=== PATIENT | female | born 2000 | race African-American/Black ===

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

== ENCOUNTER 2020-05-14 15:11 | Emergency (ER) | payer OTHER ==
--- OUTSIDE RECORDS SUMMARY | 2020-05-14 15:14 | XMS REPORT | Summary of Care ---
:2000 Author Organization [facility] Address [address] [place] [address] Care Team Providers Name Role Phone Kirby Palacio Primary Care Provider Encounter Details Date Type Department Care Team Description 05/14/2020 Orders Only [facility] Doctor Unassigned, No [address] [facility] [place] [facility] [place] [address] [address] [place] [address] Allergies No Known Allergiesdocumented as of this encounter (statuses as of 05/14/2020) Medications Medication Sig Dispensed Refills Start Date End Date Status LUPRON DEPOT-PED 15 15 mg intramuscular 1 4 10/23/2009 Active MG IM KIT every 4 weeks sulfamethoxazole-tr Take 1 tablet by 20 tablet 0 05/04/2019 Active imethoprim 800-160 mouth every 12 mg per (twelve) hours. tabletIndications: Abscess, Pilonidal cyst with abscess, Urinary tract infection without hematuria, site unspecified traMADol (ULTRAM) Take 1 tablet by 9 tablet 0 05/04/2019 Active 50 mg mouth every 8 (eight) tabletIndications: hours as needed for Abscess, Pilonidal Pain (scale 4-6). cyst with abscess, Urinary tract infection without hematuria, site unspecified documented as of this encounter (statuses as of 05/14/2020) Active Problems Problem Noted Date Precocious sexual development and puberty, not elsewhe re classified 09/24/2008 documented as of this encounter (statuses as of 05/14/2020) Social History Tobacco Use Types Packs/Day Years Used Date Never Assessed Sex Assigned at Date Recorded Not on file documented as of this encounter Last Filed Vital Signs Not on filedocumented in this encounter Plan of Treatment Health Maintenance Due Date Last Done Comments VARICELLA VACCINES (1 of 2 - 2-dose 01/03/2001 childhood series) PNEUMOCOCCAL 0-64 YEARS COMBINED 01/03/2006 SERIES (1 of 3 - PCV13) MENINGOCOCCAL B VACCINES (1 of 2 - 01/03/2010 Risk Bexsero 2-dose series) HPV VACCINES (1 - 2-dose series) 01/03/2011 Depression Screening 2012 WELL CARE VISIT: 12-21 YEARS 2012 (yearly) CHLAMYDIA SCREENING 2016 DTaP,Tdap,and Td Vaccines (1 - 01/03/2019 Tdap) INFLUENZA VACCINE (#1) 2020 MENINGOCOCCAL VACCINE Aged Out No longer eligible based on patient's age to complete this topic documented as of this encounter Procedures Procedure Name Priority Date/Time Associated Diagnosis Comme nts CONSENT/REFUSAL FOR Routine 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
--- OUTSIDE RECORDS SUMMARY | 2020-05-14 15:14 | XMS REPORT | Summary of Care ---
:2000 Author Organization [facility] Address [address] [place] [address] Care Team Providers Name Role Phone Kirby Palacio Primary Care Provider Reason for Referral Radiology Services (STAT) Status Reason Specialty Diagnoses / Referred By Referred To Procedures Contact Contact New Request Diagnostic Diagnoses Chest pain, unspecified type 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, Radiology Procedures Chest 2 Views [employer] [address] [place] [address] Reason for Visit Reason Comments Chest Pain Auth/Cert Status Reason Specialty Diagnoses / Referred By Referred To Procedures Contact Contact Emergency Medicine [facility] Em ergency Dept [address] [place] [address] Fax: Encounter Details Date Type Department Care Team Description 03/03/2020 Emergency ADC-Emergency 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 , 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 Atypical chest pain (Primary Dx); Department [address] [facility] Chest pain, unspecified type; [address] [place], [place] [address] [place] [address] [id number] [place] [address] Allergies No Known Allergiesdocumented as of this encounter (statuses as of 03/03/2020) Medications Medication Sig Dispensed Refills Start Date [...] as of this encounter (statuses as of 03/03/2020) Active Problems Problem Noted Date Precocious sexual development and puberty, not elsewhe re classified 09/24/2008 documented as of this encounter (statuses as of 03/03/2020) Social History Tobacco Use Types Packs/Day Years Used Date Never Assessed Sex Assigned at Date Recorded Not on file COVID-19 Exposure Response Date Recorded In the last month, have you been in contact with No / Unsure 03/03/2020 11:45 AM CDT someone who was confirmed or suspected to have Coronavirus / COVID-19? documented as of this encounter Last Filed Vital Signs Vital Sign Reading Time Taken Comments Blood Pressure 135/83 03/03/2020 2:30 PM CDT Pulse 57 03/03/2020 2:30 PM CDT Temperature 36.6 C (97.8 F) 03/03/2020 11:47 AM CDT Respiratory Rate 18 03/03/2020 2:30 PM CDT Oxygen Saturation 100% 03/03/2020 2:30 PM CDT Inhaled Oxygen Concentration - - Weight 117.9 kg (260 lb) 03/03/2020 11:47 AM CDT Height 167.6 cm (5' 6") 03/03/2020 11:47 AM CDT Body Mass Index 41.97 03/03/2020 11:47 AM CDT documented in this encounter Discharge Instructions Joie Flores FNP - 03/03/2020Please return to the ER if you have any increasing chest pain, fever, chills, nausea, vomiting, worsening shortness of breath, or any other symptom you feel is abnormal. Please follow up with your primary care doctor as soon as possible. Thank you. AttachmentsThe following attachments cannot be sent through Care Everywhere. Chest Pain, Uncertain Cause (Montenegrin)documented in this encounter ED Notes Cony Horner RN - 03/03/2020 11:46 AM CDTPatient complaining of chest pain that started while she was at work yesterday. States she took an Aleve and it went away. When she woke up this morning she experience the same pain but did not take any medication. documented in this encounter Miscellaneous Notes ED Nurse Note - Hector Sun RN - 03/03/2020 2:50 PM CDTDischarge teaching given. Patient verbalized understanding. Vital stable. No acute distress noted. Patient ambulatory documented in this encounter Plan of Treatment Name Type Priority Associated Diagnoses Order S chedule Urine Culture LAB CAMILA Bacteria in urine CAMILA for 1 Occurrences starting 03/03/2020 unti l 03/03/2020 Health Maintenance Due Date Last Done Comments VARICELLA VACCINES (1 of 2 - 01/03/2001 2-dose childhood series) MENINGOCOCCAL B VACCINES (1 of 2 - 01/03/2010 Risk Bexsero 2-dose series) HPV VACCINES (1 - 2-dose series) 01/03/2011 WELL CARE VISIT: 12-21 YEARS 2012 (yearly) CHLAMYDIA SCREENING 2016 DTaP,Tdap,and Td Vaccines (1 - 01/03/2019 Tdap) INFLUENZA VACCINE (#1) 2020 Depression Screening 05/07/2020 05/07/2019 MENINGOCOCCAL VACCINE Aged Out No longer eligible based on patient's age to complete this topic PNEUMOCOCCAL 0-64 YEARS COMBINED Aged Out No longer eligible based on SERIES patient's age to complete this topic documented as of this encounter Procedures Procedure Name Priority Date/Time Associated Comments Diagnosis XR CHEST 2 VW STAT 03/03/2020 1:59 Chest pain, Results fo r this PM CDT unspecified type procedure a re in the results section. URINALYSIS STAT 03/03/2020 12:35 Chest pain, Results for this PM CDT unspecified type procedure a re in the results section. CBC WITH DIFF STAT 03/03/2020 12:35 Chest pain, Results fo r this PM CDT unspecified type procedure a re in the results section. BASIC METABOLIC STAT 03/03/2020 12:35 Chest pain, Results for this PANEL (NA, K, CL, PM CDT unspecified type proced ure are in CO2, GLUCOSE, BUN, the resul ts CREATININE, CA) section. TROPONIN I STAT Add-On 03/03/2020 12:35 Chest pain, Results for this PM CDT unspecified type procedure a re in the results section. POCT TEST CAMILA 03/03/2020 12:26 Chest pain, Resu lts for this PM CDT unspecified type procedure a re in the results section. EKG-12 LEAD STAT 03/03/2020 11:55 AM CDT CONSENT/REFUSAL FOR Routine 03/03/2020 11:36 DIAGNOSIS AND AM CDT TREATMENT documented in this encounter Results Chest 2 Views (03/03/2020 1:59 PM CDT) Specimen Narrative Performed At HISTORY: Chest pain. PACS/VR/DOSE TECHNIQUE: PA and lateral views of the chest are obtai ange. No prior chest study available for comparison. FINDINGS: No acute pneumonia detected. No pneumothorax or pleural effusion or pulmonary congestion. Cardiomediastin al contour appears normal. Mild thoracolumbar scoliosis noted. CONCLUSIONS: No signs of acute cardiopulmonary disease . Procedure Note [facility], Radiant Results Inft User - 2019 2:02 PM CDT HISTORY: Chest pain. TECHNIQUE: PA and lateral views of the c hest are obtained. No prior chest study available for comparison. FINDINGS: No acute pneumonia detected. N o pneumothorax or pleural effusion or pulmonary congestion. Cardiomediastin al contour appears normal. Mild thoracolumbar scoliosis noted. CONCLUSIONS: No signs of acute cardiopul monary disease. Performing Organization Address City/State/Zipcode Phone Number PACS/VR/DOSE Troponin I (03/03/2020 12:35 PM CDT) Pathologist Sig nature TROPONIN I <0.012 <=0.034 ng/mL [facility] Specimen Blood - VENOUS Narrative Performed At Equal or Less than 0.034 ng/ml---Normal [facility] Note: Cardiac troponin begins to rise 3-4 hours after the onset of ischemia. Repeat in 4-6 hours if the sample was drawn within 3-4 hours of the onset of the symptom and found normal. Between 0.035 and 0.120 ng/mL--- Borderline. Questionable myocardial injury or necros is Note: Serial measurement may be necessary to confirm or exclude the diagnosis of myocardial injury or necrosis; Clinical correlation (symptoms, EKGs, imaging studies, and others) required; Repeat in 4-6 hours if clinically indicated. Equal or Higher than 0.121 ng/mL---Abnormal. Myocardial Injury or Necrosis Likely Biotin has been reported to cause a negative bias, interpret results relative to patient's use of biotin. Performing Organization Address City/State/Zipcode Phone Number [facility] CLIA: [id number] [place] [address] Basic Metabolic Panel (NA, K, CL, CO2, GLUCOSE, BUN, CREATININE, CA) (03/03/2020 12:35 PM CDT) Pathologist [facility] NA 140 135 - 145 mmol/L [facility] K 4.0 3.5 - 5.0 mmol/L [facility] CL 106 98 - 108 mmol/L [facility] CO2 TOTAL 27 23 - 31 mmol/L [facility] AGAP 7 2 - 16 [facility] BUN 12 7 - 23 mg/dL [facility] GLUCOSE 103 70 - 110 mg/dL [facility] CREATININE 0.91 0.50 - 1.04 [facility]/dL [facility] CALCIUM 9.4 8.6 - 10.6 mg/dL [facility] eGFR Calculation 78.8 mL/min/1.73m2 [facility] (Non-) [facility] LAB[facility] Y eGFR Calculation 95.5 mL/min/1.73m2 [facility] () [facility] Specimen Blood - VENOUS Narrative Performed At Association of Glomerular Filtration Rate (GFR) [facility] and Staging of Kidney Disease* + + +- + | GFR (mL/min/1.73 m2) | With Kidney Damage | Without Kidney Damage + + +- + | >90 | Stage one | Normal + + +- + | 60-89 | Stage two | Decreased GFR + + +- + | 30-59 | Stage three | Stage three + + +- + | 15-29 | Stage four | Stage four + + +- + | <15 (or dialysis) | Stage five | Stage five + + +- + *Each stage assumes the associated GFR level has been in effect for at least three months. Stages 1 to 5, with or without kidney disease, indicate chronic kidney disease. Notes: Determination of stages one and two (with eGFR >59mL/min/1.73 m2) requires estimation of kidney damage for at least three months as defined by structural or functional abnormalities of the kidney, manifested by either: Pathological abnormalities or Markers of kidney damage (including abnormalities in the composition of the blood or urine or abnormalities in imaging tests). Performing Organization Address City/State/Zipcode Phone Number [facility] CLIA: [id number] [place] [address] CBC with Differential (03/03/2020 12:35 PM CDT) Pathologist Sig nature WBC 5.13 4.30 - 11.10 [facility] 10*3/L [facility] RBC 4.25 3.93 - 5.25 [facility] 10*6/L [facility] HGB 11.4 (L) 11.6 - 15.0 [facility] g/dL [facility] HCT 34.9 (L) 35.7 - 45.2 % [facility] MCV 82.1 80.6 - 95.5 fL [facility] MCH 26.8 25.9 - 32.8 pg [facility] MCHC 32.7 31.6 - 35.1 [facility] g/dL [facility] RDW-SD 41.9 39.0 - 49.9 fL [facility] RDW-CV 14.4 12.0 - 15.5 % [facility] PLT 357 166 - 358 [facility] 10*3/L [facility] MPV 9.3 (L) 9.5 - 12.9 fL [facility] NRBC/100 WBC 0.0 0.0 - 10.0 /100 [facility] WBCs [facility] NRBC x10^3 <0.01 10*3/L [facility] GRAN MAT (NEUT) % 62.0 % [facility] IMM GRAN % 0.00 % [facility] LYMPH % 27.3 % [facility] MONO % 7.8 % [facility] EOS % 2.3 % [facility] BASO % 0.6 % [facility] GRAN MAT x10^3(ANC) 3.18 1.88 - 7.09 [facility] 10*3/uL HOSPITAL LABORATORY IMM GRAN x10^3 <0.03 0.00 - 0.06 [facility] 10*3/uL HOSPITAL LAB[facility]ORY LYMPH x10^3 1.40 1.32 - 3.29 [facility] 10*3/uL HOSPITAL LAB[facility]ATORY MONO x10^3 0.40 0.33 - 0.92 [facility] 10*3/uL HOSPITAL LABORATORY EOS x10^3 0.12 0.03 - 0.39 [facility] 10*3/uL HOSPITAL LABORATORY BASO x10^3 0.03 0.01 - 0.[address]/uL [facility] Specimen Blood - VENOUS Performing Organization Address [facility] Phone Number [facility] CLIA: [id number] [place] [address] Urinalysis (03/03/2020 12:35 PM CDT) Pathologist Sig nature APPEARANCE Cloudy (A) Clear [facility] COLOR Sandra (A) Yellow [facility] PH 5.0 4.8 - 8.0 [facility] SP GRAVITY 1.035 (H) 1.003 - 1.030 [facility] GLU U QUAL Normal Normal [facility] BLOOD Negative Negative [facility] KETONES 5 mg/dL (A) Negative [facility] PROTEIN 30 mg/dL (A) Negative [facility] UROBILIN 4.0 mg/dL (A) Normal [facility] BILIRUBIN Negative Negative [facility] NITRITE Negative Negative [facility] LEUK BETTIE Negative Negative [facility] RBC/HPF 2 0 - 3 HPF [facility] WBC/HPF 3 0 - 5 HPF [facility] BACTERIA Many (A) Negative [facility] MUCOUS Moderate (A) Negative LPF [facility] SQ EPITH 15 HPF [facility] Specimen Urine - URINE, CLEAN CATCH Performing Organization Address City/[facility] Phone Number [facility] CLIA: [id number] [place] [address] POCT Test (03/03/2020 12:26 PM CDT) Pathologist Sig nature POCT PREG negative On board controls acceptable present with C Line POCT PREG LOT # [id number] POCT PREG TEST DATE 02/06/2021 Specimen Urine - URINE, CLEAN CATCH documented in this encounter Visit Diagnoses Diagnosis Atypical chest pain - Primary Other chest pain Chest pain, unspecified type Bacteria in urine Other nonspecific finding on examination of urine documented in this encounter Administered Medications Medication Order MAR Action Action Date Dose Rate Site aspirin tablet 325 mg Given 03/03/2020 12:20 PM CDT 325 mg 325 mg, Oral, ONCE, 1 dose, Tu03/03/20 at 1200, STAT documented in this encounter Insurance Payer Benefit Plan / Subscriber ID Effective Phone Address T ype Group Dates [facility] [id number] 2018-Pres HMO/PP O/POS [facility] PPO ent [employer] [id number] 2019-Pre [address] [place] [id number] [place] [address] documented as of this encounter
--- OUTSIDE RECORDS SUMMARY | 2020-05-14 15:14 | XMS REPORT | Continuity of Care Document ---
:2000 Author Organization [facility] t Address [address] [place] [address] Care Team Providers Name Role Phone Maldonado Attending Clinician Doctor Unassigned, Name Attending Clinician Unavailable Yan COHN Attending Clinician Problems Condition Condition Condition Status Onset Resolution Last Treating Co mments Source Name Details Category Date Date Treatment Clinician Date Nonintract Nonintract Problem Active [facility], headache, Eduard robe unspecifie unspecifie l d d Outpati chronicity chronicity en t pattern, pattern, Clinic s unspecifie unspecifie d headache d headache type type Skin Skin Problem Active [facility] Allergies, Adverse Reactions, Alerts This patient has no known allergies or adverse reactions. Medications Ordered Filled Start Stop Current Ordering Indication Dosage Frequency Signature Comments Components Source Medication Medication Date Date Medication? Clinician (SIG) Name Name Mupirocin Mupirocin 2019- No Ami [address] 9-11 09-18 [place] applicatio Brayden es - 00:00: 00:00 n to Memoria 00 :00 affected l area Outpati ent Clinics Bepreve Bepreve Yes Ami [address] 8-06 Millender into right Luke s - 00:00: eye [facility]oria 00 l Outpati ent Clinics Hydrocodone Hydrocodone Yes Ami [address] -Acetaminop -Acetaminop Mill[place] as needed Berenice - ivon [facility] ent Clinics Procedures This patient has no known procedures. Encounters Start End Encounter Admission Attending Care Care Encounter Source Date/Time Date/Time Type Type Clinicians Facility Department ID 2020-05-14 2020-05-14 Emergency , [facility] [id number] 09:24:00 10:14:00 Juan Mcnamara [id number] [place] [id number] [place] [id number] 2020-05-14 2020-05-14 Orders Doctor JONATHAN [id number] 00:00:00 00:00:00 Only Unassigned, [place] [id number] [place] [id number] 2020-03-03 2020-03-03 Emergency Yan, [facility] [id number] 11:47:00 14:51:00 Joie Mcnamara [id number] [place] [id number] [place] [id number] 2020-03-03 2020-03-03 [facility] [id number] [facility] 11:23:00 11:23:00 [facility] Clin[facility] 2019-03-20 2019-03-20 [facility] [id number] 13:40:00 13:40:00 [facility] Outpati ent Clinics 2019-02-12 2019-02-12 [facility] [id number] 16:40:00 16:40:00 [facility] ent Clinics Results This patient has no known results.
--- OUTSIDE RECORDS SUMMARY | 2020-05-14 15:14 | XMS REPORT | Summary of Care ---
:2000 Author Organization [facility] - Health Address [address] [place] [id number] Care Team Providers Name Role Phone Kirby Palacio Primary Care Provider Reason for Visit Reason Comments Breast Problem Auth/Cert Status Reason Specialty Diagnoses / Referred By Referred To Procedures Contact Contact Emergency Medicine [facility] Em ergency Dept [address] [place] [address] Fax: Encounter Details Date Type Department Care Team Description 05/14/2020 Emergency [facility]-Emergency Juan Maldonado DO Soft tissue swelling Department [address] [place] [address]. of chest wall (Primary [address] [facility] [address] Dx) [place] [address] [place] [address] [phone] Allergies No Known Allergiesdocumented as of this encounter (statuses as of 05/14/2020) Medications Medication Sig Dispensed Refills Start Date End Date Status LUPRON DEPOT-PED 15 mg intramuscular 1 4 10/23/2009 Active 15 MG IM KIT every 4 weeks sulfamethoxazole-t Take 1 tablet by 20 tablet 0 05/04/2019 Active rimethoprim mouth every 12 800-160 mg per (twelve) hours. tabletIndications: Abscess, Pilonidal cyst with abscess, Urinary tract infection without hematuria, site unspecified traMADol (ULTRAM) Take 1 tablet by 9 tablet 0 05/04/2019 Active 50 mg mouth every 8 tabletIndications: (eight) hours as Abscess, Pilonidal needed for Pain cyst with abscess, (scale 4-6). Urinary tract infection without hematuria, site unspecified cephALEXin Take 1 capsule by 21 capsule 0 05/14/2020 0 Active (KEFLEX) 500 mg mouth 3 (three) capsuleIndications times daily for 7 : Soft tissue days. swelling of chest wall documented as of this encounter (statuses as [...] been in contact with No / Unsure 05/14/2020 9:17 AM OUTSIDE SALES EXECUTIVE someone who was confirmed or suspected to have Coronavirus / COVID-19? documented as of this encounter Last Filed Vital Signs Vital Sign Reading Time Taken Comments Blood Pressure 132/95 05/14/2020 9:23 AM OUTSIDE SALES EXECUTIVE Pulse 64 05/14/2020 9:23 AM OUTSIDE SALES EXECUTIVE Temperature 37 C (98.6 F) 05/14/2020 9:23 AM OUTSIDE SALES EXECUTIVE Respiratory Rate 14 05/14/2020 9:23 AM OUTSIDE SALES EXECUTIVE Oxygen Saturation 100% 05/14/2020 9:23 AM OUTSIDE SALES EXECUTIVE Inhaled Oxygen Concentration - - Weight 104.3 kg (230 lb) 05/14/2020 9:23 AM OUTSIDE SALES EXECUTIVE Height 167.6 cm (5' 6") 05/14/2020 9:23 AM OUTSIDE SALES EXECUTIVE Body Mass Index 37.12 05/14/2020 9:23 AM OUTSIDE SALES EXECUTIVE documented in this encounter Discharge Instructions Juan Rivera DO - 05/14/2020 DIAGNOSIS Diagnoses that have been ruled out: None Diagnoses that are still under consideration: None Final diagnoses: Soft tissue swelling of chest wall NO LIFE-THREATENING FINDINGS ON TODAY'S EXAM. PROCEDURES IN THE ER TODAY: No orders of the defined types were placed in this encounter. MEDICATIONS ADMINISTERED IN THE ER TODAY AND DISCHARGE MEDICATIONS: No orders of the defined types were placed in this encounter. FOLLOW-UP RECOMMENDATIONS: RECOMMEND FOLLOW-UP WITH A PRIMARY CARE PROVIDER OR SPECIALIST IN 2-5 DAYS, ESPECIALLY IF NO IMPROVEMENT IN SYMPTOMS. MAY FOLLOW-UP WITH A PROVIDER OF YOUR CHOICE, SUCH : 1. A PHYSICIAN OF YOUR CHOICE 2. [facility], . LOCATIONS IN [facility] 3. [facility], [address] [place], [place]; [phone] OR, IF YOU WISH TO FOLLOW-UP WITHIN THE [facility], MAY TRY THESE OPTIONS (CLINIC APPOINTMENTS AVAILABLE ON [id number] BASIS): 1. SCHEDULE AN APPOINTMENT ONLINE AT WWW[facility] 2. OR CALL THE [facility] AT OR 3. OR CALL YOUR [facility] PHYSICIAN'S OFFICE DIRECTLY IF YOU ARE ALREADY AN ESTABLISHED [facility] PATIENT. RETURN TO ER FOR WORSENING OF SYMPTOMS. AttachmentsThe following attachments cannot be sent through Care Everywhere. Cellulitis, Discharge Instructions for (Ethiopian)documented in this encounter ED Notes Cony Horner RN - 05/14/2020 9:22 AM CSTPatient noticed a lump in between breasts this morning. She became concerned when it started to itch. Juan Springer DO - 05/14/2020 9:18 AM CST EMERGENCY DEPARTMENT ENCOUNTER [facility] Patient Name: Veronica Friedman Date of : 2000 20 year old Exam Room:[address] Primary Care Physician: Ami Palacio Pre- Hospital Patient Escorted by: Self [9] Mode of Arrival: Personal means [1] EMS Treatment Prior to ED Arrival: Chief Complaint Chief Complaint Patient presents with Breast Problem HPI Veronica Friedman is a 20 year old female with redness, swelling, and itching between the breasts. Onset was this morning. No lump, mass, or abscess to touch. Has pendulous breasts with moisture, possible irritation from undergarments or yeast. No pain. No fever or streaking. Past Medical History / Immunizations No past medical history on file. Tetanus received in last 5 years: Yes Childhood immunizations: Up-to-date Past Surgical History No past surgical history on file. Allergies No Known Allergies Social History Substance & Sexual Activity No substance use or sexual activity history on file. Review of Systems Review of Systems Constitutional: Negative for chills, fatigue and fever. HENT: Negative for sore throat. Eyes: Negative for pain. Respiratory: Negative for cough, chest tightness, shortness of breath and stridor. Breasts: Negative for pain. Cardiovascular: Negative for chest pain and palpitations. Gastrointestinal: Negative for abdominal pain, constipation and diarrhea. Genitourinary: Negative for bladder incontinence, vaginal discharge and difficulty urinating. Musculoskeletal: Negative for back pain. Skin: Positive for color change. Negative for wound. Swelling between breasts Neurological: Negative for dizziness, seizures, weakness, light-headedness and headaches. Physical Exam BP (!) 132/95 | Pulse 64 | Temp 37 C (98.6 F) (Oral) | Resp 14 | Ht 1.676 m (5' 6") | Wt 104.3 kg (230 lb) | SpO2 100% | BMI 37.12 kg/m Physical Exam Vitals signs and nursing note reviewed. Constitutional: General: She is not in acute distress. Appearance: She is well-developed. She is not diaphoretic. HENT: Head: Normocephalic and atraumatic. Right Ear: External ear normal. Left Ear: External ear normal. Nose: Nose normal. Eyes: General: No scleral icterus. Conjunctiva/sclera: Conjunctivae normal. Pupils: Pupils are equal, round, and reactive to light. Neck: Musculoskeletal: Normal range of motion and neck supple. Cardiovascular: Rate and Rhythm: Normal rate and regular rhythm. Heart sounds: Normal heart sounds. Pulmonary: Effort: Pulmonary effort is normal. Breath sounds: Normal breath sounds. Chest: Chest wall: Swelling and edema present. No mass or tenderness. Comments: 2cm area of swelling. No defined mass or abscess. Abdominal: General: Bowel sounds are normal. Palpations: Abdomen is soft. Tenderness: There is no abdominal tenderness. Musculoskeletal: Normal range of motion. Skin: General: Skin is warm and dry. Neurological: Mental Status: She is alert and oriented to person, place, and time. Cranial Nerves: No cranial nerve deficit. Deep Tendon Reflexes: Reflexes are normal and symmetric. Psychiatric: Behavior: Behavior normal. Thought Content: Thought content normal. Labs No results found for this or any previous visit (from the past 24 hour(s)). Imaging No results found for this visit on 05/14/20. Orders and Treatments No orders of the defined types were placed in this encounter. Orders Placed This Encounter Medications cephALEXin (KEFLEX) 500 mg capsule Procedures See ED Procedure Note Notes & MDM Patient was evaluated for an emergency medical condition related to Breast Problem . Differential diagnoses considered by presenting complaints but not limited to: Inflammatory changes, abscess, cellulitis, mass, fibrocystic changes, and others. Assessment: Veronica Friedman is a 20 year old female with redness and inflammatory changes between the breast. Initiated treatment with keflex and wait and see. Referral to PCP for OP ultrasound if symptomsdo not completely resolve over next week. Return precautions given if symptoms worsen as documentedin the discharge instructions. History, physical exam findings, results of visit, differential diagnosis, medication regimens and plan of future care have been considered. Additional MDM may be found in the ED course. Differential diagnosis considered and final disposition made based on information gathered during evaluation and may not be completely ruled out or specifically listed. Vital signs were rechecked before final disposition and determined to be stable. Diagnosis ICD-10-CM ICD-9-CM 1. Soft tissue swelling of chest wall R22.2 786.6 Disposition & Follow Up ED Disposition ED Disposition Condition Comment Disch - Home Stable Patient's Medications START taking these medications CEPHALEXIN (KEFLEX) 500 MG CAPSULE Take 1 capsule by mouth 3 (three) times daily for 7 days. CONTINUE taking these medications which have NOT CHANGED LUPRON DEPOT-PED 15 MG IM KIT 15 mg intramuscular every 4 weeks SULFAMETHOXAZOLE-TRIMETHOPRIM 800-160 MG PER TABLET Take 1 tablet by mouth every 12 (twelve) hours. TRAMADOL (ULTRAM) 50 MG TABLET Take 1 tablet by mouth every 8 (eight) hours as needed for Pain (scale 4-6). START taking Modified Medications as Prescribed No medications on file STOP taking these medications No medications on file Contact information for follow-up Ami Palacio Specialty: FM-FAMILY MEDICINE Relationship: PCP - General [address] [facility] [address] [facility] [address] Instructions: For follow up of the presenting symptoms. Needs OP ultrasound if symptoms do not completely resolve. [facility]-Emergency Department Specialty: Emergency Medicine [address] [facility] [address] Instructions: If symptoms worsen as documented in the discharge Juan Maldonado DO 05/14/2020 9:51 AM ACTIVE COVID-19 PANDEMIC. documented in this encounter Miscellaneous Notes ED Nurse Note - Cony Horner RN - 05/14/2020 10:14 AM CSTPT D/C home. GCS15, VS stable, no ataxia noted. Given one prescription and D/C paperwork. Pt ambulatory at time of discharge. Pt educated on cellulitis, med usage, follow up care, s/s worsening condition. Pt verbalized understanding. Work/school note was not given. documented in this encounter Plan of Treatment Health [...] this topic documented as of this encounter Results Not on filedocumented in this encounter Visit Diagnoses Diagnosis Soft tissue swelling of chest wall - Mohini merrill Swelling, mass, or lump in chest documented in this encounter Insurance Payer Benefit Plan / Subscriber ID Effective Phone Address T ype Group Dates [facility] [id number] 2018-Pres HMO/PP O/POS HEALTHCARE HEALTHCARE PPO ent [employer] [id number] 2016-Pre [address] BOX Medicaid [facility] sent [id number] [place] [address] (Work) [id number] documented as of this encounter
--- OUTSIDE RECORDS SUMMARY | 2020-05-14 15:14 | XMS REPORT ---
:2000 Author Organization eClinical[employer] Care Team Providers Name Role Phone Ami Palacio Provider Role Unavailable Allergies No Known Allergies Problems Problem Type Condition Code Onset Dates Condition Statu s Problem Nonintractable headache, unspecified R51 Active chronicity pattern, unspecified headache type Problem Skin lesion L98.9 Active Medications No Known Medications Results No Known Results Summary Purpose eClinicalWorks Submission
--- NOTE | 2020-05-14 16:40 | ER ---
Nurse's Notes [facility] Name: Veronica Friedman Age: 20 yrs Sex: Female : 2000 Arrival Date: 05/14/2020 Time: 15:14 Bed 23 Private MD: Diagnosis: Candidiasis Presentation: 05/14 15:19 Chief complaint: Patient states: "I have this knot on my chest in between my breast. it jd3 doesn't hurt, but it itches. I also for some reason didn't have my period for like 2 months and then just started, so I wasn't to make sure everything with that is ok too.". Coronavirus screen: At this time, the client does not indicate any symptoms associated with coronavirus-19. Ebola Screen: Patient negative for fever greater than or equal to 101.5 degrees Fahrenheit, and additional compatible Ebola Virus Disease symptoms. Initial Sepsis Screen: Does the patient meet any 2 criteria? No. Patient's initial sepsis screen is negative. Does the patient have a suspected source of infection? No. Patient's initial sepsis screen is negative. Risk Assessment: Do you want to hurt yourself or someone else? Patient reports no desire to harm self or others. Onset of symptoms was May 14, 2020. 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 - Social history:: Smoking status: Patient denies any tobacco usage or history of. Screenin:00 Abuse screen: Denies threats or abuse. Nutritional screening: No deficits noted. jd3 Tuberculosis screening: No symptoms or risk factors identified. Fall Risk Ambulatory Aid- None/Bed Rest/Nurse Assist (0 pts). Gait- Normal/Bed Rest/Wheelchair (0 pts) Mental Status- Oriented to own ability (0 pts). Total Sheriff Fall Scale indicates No Risk (0-24 pts). Assessment: 15:59 General: Appears in no apparent distress. uncomfortable, Behavior is calm, cooperative, jd3 appropriate for age. Pain: Denies pain. Neuro: Level of Consciousness is awake, alert, obeys commands, Oriented to person, place, time, situation. Cardiovascular: Denies chest pain, Capillary refill < 3 seconds Patient's skin is warm and dry. Respiratory: Airway is patent Respiratory effort is even, unlabored, Respiratory pattern is regular, symmetrical, Denies cough, shortness of breath. GI: No signs and/or symptoms were reported involving the gastrointestinal system. : No signs and/or symptoms were reported regarding the genitourinary system. EENT: No signs and/or symptoms were reported regarding the EENT system. Derm: Skin is intact, Skin is dry, Skin is normal, Skin temperature is warm Reports red itchy raised area in the middle of the chest. Musculoskeletal: Circulation, motion, and sensation intact. Range of motion: intact in all extremities. 16:51 Reassessment: Patient appears in no apparent distress at this time. Patient and/or jd3 family updated on plan of care and expected duration. Pain level reassessed. Patient is alert, oriented x 3, equal unlabored respirations, skin warm/dry/pink. Vital Signs: 15:21 BP 110 / 71; Pulse 78; Resp 16 S; Temp 97.1(TE); Pulse Ox 100% on R/A; Weight 104.33 kg jd3 (R); Height 5 ft. 6 in. (167.64 cm) (R); Pain 0/10; 16:51 BP 112 / 76; Pulse 76; Resp 16 S; Pulse Ox 100% on R/A; jd3 15:21 Body Mass Index 37.12 (104.33 kg, 167.64 cm) jd3 ED Course: 15:14 Patient arrived in ED. as 15:20 Triage completed. jd3 15:22 Arm band placed on. jd3 15:33 Richelle Gordon FNP-C is PHCP. snw 15:33 Tramaine Ryan MD is Attending Physician. snw 15:59 Colby Villatoro RN is Primary Nurse. jd3 16:00 Patient has correct armband on for positive identification. Bed in low position. Call j light in reach. Side rails up X 1. Pulse ox on. NIBP on. 16:51 No provider procedures requiring assistance completed. Patient did not have IV access jd3 during this emergency room visit. Administered Medications: 16:48 Drug: DiFLUcan 100 mg Route: PO; jd3 16:52 Follow up: Response: Medication administered at discharge. jd3 Outcome: 16:39 Discharge ordered by . w 16:51 Discharged to home ambulatory, with family. jd3 16:51 Condition: stable 16:51 Discharge instructions given to patient, Instructed on discharge instructions, follow up and referral plans. medication usage, Demonstrated understanding of instructions, follow-up care, medications, Prescriptions given X 1. 16:52 Patient left the ED. jd3 Signatures: Richelle Gordon, LALIT-C NURSE STAFF-Shayy Crane Jonathon RN RN jd3 Corrections: (The following items were deleted from the chart) 15:22 15:21 Pulse 78bpm; Resp 16bpm; Spontaneous; Pulse Ox 100% RA; Temp 97.1F Temporal; jd3 104.33 kg Reported; Height 5 ft. 6 in. Reported; BMI: 37.1; Pain 0/10; jd3 15:23 15:21 Pulse 78bpm; Resp 16bpm; Spontaneous; Pulse Ox 100% RA; Temp 97.1F Temporal; jd3 104.33 kg Reported; Height 5 ft. 6 in. Reported; BMI: 37.1; Pain 0/10; jd3
--- NOTE | 2020-05-14 16:40 | EDPHYS ---
Physician Documentation [facility] Name: Veronica Friedman Age: 20 yrs Sex: Female : 2000 Arrival Date: 05/14/2020 Time: 15:14 Bed 23 Private MD: ED Physician Tramaine Ryan HPI: 05/14 17:51 This 20 yrs old Black Female presents to ER via Ambulatory with complaints of knot on snw chest. 17:51 The patient's rash thought to be caused by Dermatitis. The rash is located on the snw xyphoid area. The rash can be described as itching. Onset: The symptoms/episode began/occurred weeks ago. Associated signs and symptoms: Pertinent positives: itching. Treatment given at home: none. It is unknown whether or not the patient has had similar symptoms in the past. The patient has not recently seen a physician. 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 - Social history:: Smoking status: Patient denies any tobacco usage or history of. ROS: 17:50 Constitutional: Negative for fever, chills, and weight loss, Eyes: Negative for injury, snw pain, redness, and discharge, ENT: Negative for injury, pain, and discharge, Neck: Negative for injury, pain, and swelling, Cardiovascular: Negative for chest pain, palpitations, and edema, Respiratory: Negative for shortness of breath, cough, wheezing, and pleuritic chest pain, Abdomen/GI: Negative for abdominal pain, nausea, vomiting, diarrhea, and constipation, Back: Negative for injury and pain, : Negative for injury, bleeding, discharge, and swelling, MS/Extremity: Negative for injury and deformity, Neuro: Negative for headache, weakness, numbness, tingling, and seizure, Psych: Negative for depression, anxiety, suicide ideation, homicidal ideation, and hallucinations. 17:50 Skin: Positive for knot between breasts and itching. Exam: 17:49 Constitutional: This is a well developed, well nourished patient who is awake, alert, snw and in no acute distress. Head/Face: Normocephalic, atraumatic. Eyes: Pupils equal round and reactive to light, extra-ocular motions intact. Lids and lashes normal. Conjunctiva and sclera are non-icteric and not injected. Cornea within normal limits. Periorbital areas with no swelling, redness, or edema. ENT: Nares patent. No nasal discharge, no septal abnormalities noted. Tympanic membranes are normal and external auditory canals are clear. Oropharynx with no redness, swelling, or masses, exudates, or evidence of obstruction, uvula midline. Mucous membranes moist. Neck: Trachea midline, no thyromegaly or masses palpated, and no cervical lymphadenopathy. Supple, full range of motion without nuchal rigidity, or vertebral point tenderness. No Meningismus. Chest/axilla: Normal chest wall appearance and motion. Nontender with no deformity. No lesions are appreciated. Cardiovascular: Regular rate and rhythm with a normal S1 and S2. No gallops, murmurs, or rubs. Normal PMI, no JVD. No pulse deficits. Respiratory: Lungs have equal breath sounds bilaterally, clear to auscultation and percussion. No rales, rhonchi or wheezes noted. No increased work of breathing, no retractions or nasal flaring. Abdomen/GI: Soft, non-tender, with normal bowel sounds. No distension or tympany. No guarding or rebound. No evidence of tenderness throughout. Back: No spinal tenderness. No costovertebral tenderness. Full range of motion. MS/ Extremity: Pulses equal, no cyanosis. Neurovascular intact. Full, normal range of motion. Neuro: Awake and alert, GCS 15, oriented to person, place, time, and situation. Cranial nerves II-XII grossly intact. Motor strength 5/5 in all extremities. Sensory grossly intact. Cerebellar exam normal. Normal gait. Psych: Awake, alert, with orientation to person, place and time. Behavior, mood, and affect are within normal limits. 17:49 Skin: Appearance: normal except for affected area, Large breast that touch in center, area between with mild erythema and itching. Vital Signs: 15:21 BP 110 / 71; Pulse 78; Resp 16 S; Temp 97.1(TE); Pulse Ox 100% on R/A; Weight 104.33 kg jd3 (R); Height 5 ft. 6 in. (167.64 cm) (R); Pain 0/10; 16:51 BP 112 / 76; Pulse 76; Resp 16 S; Pulse Ox 100% on R/A; jd3 15:21 Body Mass Index 37.12 (104.33 kg, 167.64 cm) jd3 MDM: 16:34 Patient medically screened. snw 17:50 Data reviewed: vital signs, nurses notes. Data interpreted: Pulse oximetry: on room air snw is 100 %. Interpretation: normal. Counseling: I had a detailed discussion with the patient and/or guardian regarding: the historical points, exam findings, and any diagnostic results supporting the discharge/admit diagnosis, the need for outpatient follow up, to return to the emergency department if symptoms worsen or persist or if there are any questions or concerns that arise at home. Special discussion: Based on the history and exam findings, there is no indication for further emergent testing or inpatient evaluation. I discussed with the patient/guardian the need to see the primary care provider for further evaluation of the symptoms. 05/14 16:38 Order name: ROLY; Complete Time: 16:48 snw Administered Medications: 16:48 Drug: DiFLUcan 100 mg Route: PO; jd3 16:52 Follow up: Response: Medication administered at discharge. jd3 Disposition: 18:27 Co-signature as Attending Physician, Tramaine Ryan MD I agree with the assessment and kdr plan of care. Disposition: 05/14/20 16:39 Discharged to Home. Impression: Candidiasis. - Condition is Stable. - Discharge Instructions: Skin Yeast Infection. - Prescriptions for Lotrimin AF 1 % Topical cream - apply 1 application by TOPICAL route 2 times per day; 50 gram. - Medication Reconciliation Form, Thank You Letter, Antibiotic Education, Prescription Opioid Use, Work release form form. - Follow up: Emergency Department; When: As needed; Reason: Worsening of condition. Follow up: Private Physician; When: 1 week; Reason: Recheck today's complaints, Continuance of care, Re-evaluation by your physician. Signatures: Tramaine Ryan MD MD kdr Waters, Shelly, AIRCRAFT MECHANIC ARMAMENT-C AIRCRAFT MECHANIC ARMAMENT-Celiaw Colby Villatoro RN RN jd3 Corrections: (The following items were deleted from the chart) 16:40 16:39 05/14/2020 16:39 Discharged to Home. Impression: Tinea corporis. Condition is snw Stable. Forms are Medication Reconciliation Form, Thank You Letter, Antibiotic Education, Prescription Opioid Use. Follow up: Emergency Department; When: As needed; Reason: Worsening of condition. Follow up: Private Physician; When: 1 week; Reason: Recheck today's complaints, Continuance of care, Re-evaluation by your physician. snw 16:52 16:40 05/14/2020 16:39 Discharged to Home. Impression: Candidiasis. Condition is jd3 Stable. Prescriptions for Clotrimazole 1 % Topical Cream - Apply to affected area 1 application by TOPICAL route every 12 hours; 15 gram. and Forms are Medication Reconciliation Form, Thank You Letter, Antibiotic Education, Prescription Opioid Use. Follow up: Emergency Department; When: As needed; Reason: Worsening of condition. Follow up: Private Physician; When: 1 week; Reason: Recheck today's complaints, Continuance of care, Re-evaluation by your physician. snw
[2020-05-14] MEDS ORDERED: FLUCONAZOLE 100 MG TAB ONE (16:55)
[2020-05-14 18:18] VITALS: TEMP 97.1; O2SAT 100
[2020-05-14 18:20] VITALS: BP 112/76
== END 2020-05-14 16:52 | disposition home or self-care (01) ==
LOC: ER 15:11
DX: B37.9 Candidiasis, unspecified (principal)
CPT/HCPCS: 82947; 99283